=== PATIENT | female | born 1960 | race Caucasian/White ===

== ENCOUNTER → 2017-04-29 | Outpatient (CLI) | payer BC ==
--- NOTE | ~2017-04-29 | US5 ---
[facility] A Service of [facility] RADIOLOGY TEXT RESULTS PATIENT: OLYA BARFIELD LOCATION: SGUS : 64 UNIT #: [id number] AGE: [address]: Abdirahman Wright MD SEX: F ORDER DR: [id number] [address] [address] [id number] MR#: [id number] Acc #: [id number] NAME: OLYA BARFIELD : 1960 SEX: F STUDY DATE/TIME: 04/29/2017 9:05 UNIT: [facility]US ROOM: STUDY DESCRIPTION: US Abdominal Complete Attending Physician: Abdirahman Wright Jr., M.D. Ordering Physician: Abdirahman Wright Jr., M.D. Primary Care Physician: Abdirahman Wright Jr., M.D. MEDICAL IMAGING REPORT This report is preliminary unless electronic signature is present. EXAM Abdominal ultrasound complete 04/29/2017 HISTORY Abnormally elevated liver enzymes for 3 days. FINDINGS Liver demonstrates an increase in echotexture with attenuation of the ultrasound beam characteristic of fatty infiltration. No cystic or solid mass lesions were seen in the liver. The intra- and extrahepatic bile ducts are not dilated. The gallbladder is normal with no evidence of cholelithiasis, wall thickening, or pericholecystic fluid. The common duct measures 5 mm. The pancreas and spleen are normal. The spleen measures 10.9 cm in greatest diameter. The visualized portions of the abdominal aorta and inferior vena cava are within normal limits. The kidneys are normal bilaterally. IMPRESSION Fatty infiltration of the liver. Otherwise, negative abdominal ultrasound. Dictated by... Lj Johnson M.D. THIS IS AN ELECTRONICALLY VERIFIED REPORT Lj Johnson M.D. at 04/30/2017 8:09 AM CHANDNI/rafa TD: 04/29/2017 14:03 JOB #: [id number] [facility] [place] [facility]IOLOGY TEXT RESULTS PATIENT: OLYA BARFIELD LOCATION: [facility] : 64 UNIT #: [id number] AGE: [address]: Abdirahman Wright MD SEX: F ORDER DR: MEDICAL IMAGING REPORT Page 1 of 1
--- NOTE | ~2017-04-29 | MR103 ---
[facility] A Service [facility] RADIOLOGY TEXT RESULTS PATIENT: OLYA BARFIELD LOCATION: [facility] : 64 UNIT #: [id number] AGE: [address]: Abdirahman Wright MD SEX: F ORDER DR: [id number] [place] [id number] P MR#: [id number] Acc #: [id number] NAME: OLYA BARFIELD : 1960 SEX: F STUDY DATE/TIME: 04/29/2017 10:27 UNIT: SGUS ROOM: STUDY DESCRIPTION: MR Knee Wo Contrast Lt Attending Physician: Abdirahman Wright Jr., M.D. Ordering Physician: Abdirahman Wright Jr., M.D. Primary Care Physician: Abdirahman Wright Jr., M.D. MRI CENTER REPORT This report is preliminary unless electronic signature is present. EXAM Left knee MRI without contrast, 04/29/17. HISTORY A 56-year-old female with left knee pain for 2 - 3 months. No prior left knee surgery COMPARISON STUDIES Left knee x-rays 10/26/2012 TECHNIQUE Routine unenhanced multiplanar, multisequence high field MR imaging left knee was performed. FINDINGS The medial and lateral menisci are intact. Cruciate and collateral ligaments are intact. Extensor mechanism is intact. There is a physiologic amount joint fluid. There is very tiny popliteal cyst. 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 Femoral trochlea and articular cartilage is intact. There is low grade chondromalacia along the central weightbearing surfaces of the lateral compartment. Low grade chondromalacia of the central weightbearing medial femoral condyle. Bone marrow signal is within expected limits. Visualized musculature is unremarkable. IMPRESSION 1. No evidence of a meniscus tear or acute ligament injury. [facility] A [facility] RADIOLOGY TEXT RESULTS PATIENT: OLYA BARFIELD LOCATION: [facility] : 64 UNIT #: [id number] AGE: [address]: Abdirahman Wright MD SEX: F ORDER DR: 2. Eyq-bo-jvfjaxnt grade chondromalacia of the patella. 3. 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 4. Very small popliteal cyst. Dictated by... Tariq Bacon M.D. THIS IS AN ELECTRONICALLY VERIFIED REPORT Tariq Bacon M.D. at 04/30/2017 4:48 PM ABBEY/curtis TD: 04/29/2017 20:17 JOB #: [id number] MRI CENTER REPORT Page 1 of 1
== END | disposition home or self-care (01) ==
LOC: SGUS 08:24
DX: M25.462 Effusion, left knee (principal); R94.5 Abnormal results of liver function studies; K76.0 Fatty (change of) liver, not elsewhere classified; M22.42 Chondromalacia patellae, left knee; M71.22 Synovial cyst of popliteal space [Baker], left knee
CPT/HCPCS: 73721; 76700